=== PATIENT | male | born 1965 | race Hispanic/Latino ===

== ENCOUNTER 2024-05-02 02:04 | Emergency (ER) | payer OTHER ==
[~2024-05-02] VITALS: Ht 157.5 cm; Wt 62.1 kg
[~2024-05-02 02:04] MED LIST: BETA45CR3 TP; DESO15CR29 TP
--- NOTE | 2024-05-02 03:13 | ERN ---
ED Note History of Present Illness Stated Complaint: R KNEE PAIN Chief Complaint: Knee Injury/Swelling Time Seen by MD: 02:07 Dictation: 59-year-old male with a past medical history of psoriasis who presented to the ER complaining of 4 days pain in the right knee, stated the pain is severe prevented him to ambulate. He denies fever, chills. No trauma to the affected knee Allergies: Coded Allergies: No Known Allergies (Unverified Allergy, Unknown, 01/20/24) Home Meds Active Scripts Prednisone (Prednisone) 10 Mg Tab.ds.pk, 40 MG PO DAILYBKFST for 3 Days, #3 TAB Prov:CELESTE BAUTISTA MD 05/02/24 Prednisone (Prednisone) 10 Mg Tab.ds.pk, 10 MG PO BID, #10 10 Prov:CELESTE BAUTISTA MD 05/02/24 Ibuprofen (Ibuprofen) 600 Mg Tablet, 1 TAB PO TID for pain for 5 Days, #20 TAB 0 Refills with food Prov:CELESTE BAUTISTA MD 05/02/24 Acetaminophen (Tylenol) 500 Mg Tab, 1 TAB PO Q6HPRN PRN for pain or fever for 15 Days, #60 TAB 0 Refills Prov:CELESTE BAUTISTA MD 05/02/24 Ketorolac Tromethamine (Ketorolac Tromethamine) 10 Mg Tablet, 1 TAB PO Q6HPRN PRN for pain for 5 Days, #20 TAB 0 Refills Prov:CELESTE BAUTISTA MD 05/02/24 Desonide (Desonide) 0.05 % Cream..g., 15 GM TP BID for for facial rash for 90 Days, #1 TUBE 1 Refill Prov:AMNA KEATING MD 01/20/24 Betamethasone Dipropionate (Betamethasone Dipropionate) 0.05 % Cream.gm., 45 GM TP BID for apply to affected trunk area for 30 Days, #60 APPL Prov:AMNA KEATING MD 01/20/24 Past Medical History Past Medical History: No Pertinent History Surgical History: None Review of System Dictation NEGATIVE EXCEPT PER HPI Constitutional: Negative for fever,chills, and weight loss Eyes: Negative for injury, pain,redness, and discharge ENT: Negative for injury,pain or swelling Cardiovascular: denies chest pain, palpitations, and edema Respiratory: Negative for shortness of breath, cough, and wheezing, Abdomen/GI: Negative for abdominal pain, nausea, vomiting, diarrhea, and constipation Back: Negative for injury and pain : Negative for injury, bleeding and discharge MS/Extremity: Right knee pain Skin: Negative for rash, and discoloration Neuro: Negative for headache, weakness, numbness, tingling, and seizure Psych: Negative for suicide ideation, homicidal ideation, and hallucinations Initial Vital Sign VS Vital Signs Date Time Temp Pulse Resp B/P (MAP) Pulse Ox O2 Delivery O2 Flow Rate FiO2 05/02/24 02:05 97.9 77 16 120/70 98 Room Air 05/02/24 04:11 0 21 Physical Exam Dictation General: awake, alert, NAD Head/Face: Normocephalic, atraumatic Eyes: PERRL, EOMI, vision at baseline ENT: oral cavity clear, TMs clear, no signs of infection Neck: Trachea midline, supple, no nuchal rigidity Cardiovascular: RRR, normal S1/S2, No MRGs, no JVD Respiratory: CTAB, no respiratory distress, No rales or wheezes Abdomen: Soft , no tender Skin: Warm, dry, normal turgor, no rash MS/Extremity: Pulses equal, no cyanosis, neurovascular intact, FROM. Right knee tender with movement. Neuro: COAx4, GCS 15, strength 5/5, CN 2-12 intact, normal cerebellar exam, normal gait, Psych: Normal behavior, mood, and affect normal Results (Laboratory/Radiology) Laboratory/Radiology Laboratory Tests Test 05/02/24 03:45 White Blood Count 6.0 K/uL (4.8-10.8) Red Blood Count 4.14 MIL/uL (4.50-6.20) L Hemoglobin 14.2 g/dL (14.0-18.0) Hematocrit 40.0 % (42-54) L Mean Corpuscular Volume 96.6 fL (79-99) Mean Corpuscular Hemoglobin 34.3 pg (27.0-33.0) H Mean Corpuscular Hemoglobin Concent 35.5 g/dL (32.0-36.0) Red Cell Distribution Width 13.7 % (11.0-15.5) Platelet Count 125 K/uL (130-400) L Mean Platelet Volume 9.6 fL (7.5-10.5) Immature Granulocyte % (Auto) 0.2 % (0-1) Neutrophils (%) (Auto) 47.1 % (40.0-77.0) Lymphocytes (%) (Auto) 33.3 % (21.0-51.0) Monocytes (%) (Auto) 9.9 % (3.0-13.0) Eosinophils (%) (Auto) 8.7 % (0.0-8.0) H Basophils (%) (Auto) 0.8 % (0.0-5.0) Neutrophils # (Auto) 2.8 K/uL (1.8-7.7) Lymphocytes # (Auto) 2.0 K/uL (1.0-4.8) Monocytes # (Auto) 0.6 K/uL (0.1-1.0) Eosinophils # (Auto) 0.52 K/uL (0.00-0.70) Basophils # (Auto) 0.05 K/uL (0.00-0.20) Absolute Immature Granulocyte (auto 0.01 K/uL (0-1) Nucleated Red Blood Cells 0.0 % (0.0-0.19) Blood Urea Nitrogen 4 mg/dL (7-18) L Uric Acid 5.0 mg/dL (2.6-7.2) C-Reactive Protein, Quantitative 2.80 mg/L (0.5-3.0) ED Course ED Course Orders Procedure Category Date Status Time Cbc With Differential LAB 05/02/24 In Process 02:25 Erythrocyte LAB 05/02/24 In Process Sedimentation Rate 02:25 Crp Quantitative LAB 05/02/24 Complete 02:25 Uric Acid LAB 05/02/24 Complete 02:25 Urea Nitrogen, Blood LAB 05/02/24 Complete 02:25 Knee 3vws Rt RAD 05/02/24 Taken 02:29 Ketorolac PHA 05/02/24 Complete Tromethamine 30mg/Ml 03:00 Methylprednisolone PHA 05/02/24 Complete Succ 40mg (Solu-Medro 03:00 Morphine 4mg Syg PHA 05/02/24 Complete (Morphine 4mg Syg) 04:30 Current Medications Medications (Trade) Dose Ordered Sig/Alaina Route PRN Reason Start Time Stop Time Status Last Admin Dose Admin Ketorolac Tromethamine (toRADol) 30 mg ONCE ONCE IM 05/02/24 03:00 05/02/24 03:01 DC 05/02/24 03:51 Methylprednisolone Sodium Succinate (Solu-medROL 40MG) 40 mg ONCE ONCE IVP 05/02/24 03:00 05/02/24 03:01 DC 05/02/24 03:50 Morphine Sulfate (morPHINE 4MG SYG) 4 mg ONCE ONCE IVP 05/02/24 04:30 05/02/24 04:31 DC 05/02/24 04:16 Vital Signs Date Time Temp Pulse Resp B/P (MAP) Pulse Ox O2 Delivery O2 Flow Rate FiO2 05/02/24 04:11 98.1 73 16 127/78 99 Room Air* 0 21 05/02/24 02:05 97.9 77 16 120/70 98 Room Air Medical Decision Making MDM 59-year-old male with a past medical history of psoriasis who presented with right knee pain x4 days. -knee pain -psoriatic arthritis Ordered CBC, ESR, CRP Knee x-ray , right Methylprednisolone 40 mg IV, ketorolac 30 mg IV, Patient was re-evaluate and stated that he is still having severe knee pain. -morphine 4 mg IV given I reviewed the imaging, no acute abnormality find in the right knee x-ray. Patient will be discharged home Patient he will be discharged home on p.r.n. medications and recommendation to follow up with the primary care physician in the next 24 to 48 hours. DX & DISP Disposition: Discharge Departure Impression: Primary Impression: Knee pain, right Additional Impression: Psoriatic arthritis Condition: Improved Scripts Prednisone (Prednisone) 10 Mg Tab.ds.pk 40 MG PO DAILYBKFST for 3 Days, #3 TAB Prov: CELESTE BAUTISTA MD 05/02/24 Prednisone (Prednisone) 10 Mg Tab.ds.pk 10 MG PO BID, #10 10 Prov: CELESTE BAUTISTA MD 05/02/24 Ibuprofen (Ibuprofen) 600 Mg Tablet 1 TAB PO TID for pain for 5 Days, #20 TAB 0 Refills with food Prov: CELESTE BAUTISTA MD 05/02/24 Acetaminophen (Tylenol) 500 Mg Tab 1 TAB PO Q6HPRN PRN for pain or fever for 15 Days, #60 TAB 0 Refills Prov: CELESTE BAUTISTA MD 05/02/24 Ketorolac Tromethamine (Ketorolac Tromethamine) 10 Mg Tablet 1 TAB PO Q6HPRN PRN for pain for 5 Days, #20 TAB 0 Refills Prov: CELESTE BAUTISTA MD 05/02/24 Additional Instructions: RETURN TO ER FOR ANY ACUTE OR WORSENING SYMPTOMS. FOLLOW-UP IN 1-2 DAYS WITH PRIMARY PROVIDER FOR RECHECK OF TODAY'S SYMPTOMS. Referrals: SELF,REFERRAL (PCP) Time of Disposition: 04:36 CELESTE BAUTISTA MD May 02, 2024 03:13
[2024-05-02] MEDS: Solu-medROL 40MG VIAL IVP ONE (03:50)
[2024-05-02] MEDS: ketOROlac 30MG VIAL (30MG/ML) IM ONE (03:51)
[2024-05-02 03:55] LABS: BASOPHILS # (AUTO) 0.05 K/uL (0.00-0.20); BASOPHILS % (AUTO) 0.8 % (0.0-5.0); EOSINOPHILS # (AUTO) 0.52 K/uL (0.00-0.70); EOSINOPHILS % (AUTO) 8.7 % (0.0-8.0); IMMATURE GRANULOCYTE ABSOLUTE 0.01 K/uL (0-1); LYMPHOCYTES % (AUTO) 33.3 % (21.0-51.0); MEAN CORPUSCULAR HEMOGLOBIN 34.3 pg (27.0-33.0); MEAN CORPUSCULAR HGB CONC 35.5 g/dL (32.0-36.0); MEAN CORPUSCULAR VOLUME 96.6 fL (79-99); MONOCYTES # (AUTO) 0.6 K/uL (0.1-1.0); MONOCYTES % (AUTO) 9.9 % (3.0-13.0); NEUTROPHILS # (AUTO) 2.8 K/uL (1.8-7.7); NEUTROPHILS % (AUTO) 47.1 % (40.0-77.0); PLATELET COUNT (AUTO) 125 K/uL (130-400); RED BLOOD CELL COUNT(AUTO) 4.14 MIL/uL (4.50-6.20); RED CELL DISTRIBUTION WIDTH 13.7 % (11.0-15.5)
[2024-05-02 04:11] VITALS: BP 127/78; PULSE 73; RESP 16; TEMP 98.1; O2SAT 99
[2024-05-02] MEDS: morPHINE 4 MG SYG IVP ONE (04:16)
[2024-05-02] MEDS ORDERED: ACET-66 PO (04:21)
[2024-05-02] MEDS ORDERED: IBUP-2070 PO (04:21)
[2024-05-02] MEDS ORDERED: KETO10TA2 PO (04:21)
[2024-05-02] MEDS ORDERED: PRED10TA23 PO ×2 (04:21→04:35)
[2024-05-02 05:10] LABS: ERYTHROCYTE SEDIMENTATION RATE 24 MM/HR (0-20)
--- NOTE | 2024-05-02 09:10 | HMCIMG ---
Exam Type: KNEE 3VWS RT Clinical Information: pain, possible psoriatic arthritis, Comparison: None Findings: The bone examination is unremarkable. No fractures or dislocations are seen. No radiopaque foreign bodies are noted. Soft tissues are preserved. IMPRESSION: Normal examination.
== END 2024-05-02 04:45 | disposition home or self-care (01) ==
LOC: EDH 02:04
DX: M25.561 Pain in right knee (principal); L40.50 Arthropathic psoriasis, unspecified; Z79.1 Long term (current) use of non-steroidal anti-inflammatories (NSAID); Z79.52 Long term (current) use of systemic steroids
CPT/HCPCS: 99284; 96374; 96375; 84520; 84550; 85025; 85651; 86140; 36415; 73562; 96372; J2919; J2270; J1885